=== PATIENT | female | born 1965 | race Caucasian/White ===

== ENCOUNTER 2017-02-18 03:47 | Emergency (ER) | payer OTHER ==
[~2017-02-18] VITALS: Ht 152.4 cm; Wt 82.6 kg
[~2017-02-18 03:47] MED LIST: AMLODIPINE BES2.5 M1 PO; AUGMENTIN 875-1 EACH PO; FAMOTIDINE40 M1 PO; FERROUS SULFAT324 MG PO; FIORICET 325 MG1 TAB PO; FISH OIL 1,0001 EAC1 PO; PAXIL10 M1 PO; VICODIN 5-3001 EACH PO
--- NOTE | 2017-02-18 04:05 | ED NECK/BACK PAIN COMPLAINT ---
History of Present Illness General Chief Complaint: Low Back Pain/Injury Stated Complaint: BACK PAIN Source: patient Exam Limitations: no limitations Vital Signs & Intake/Output Vital Signs & Intake/Output Vital Signs Date Time Temp Pulse Resp B/P B/P Pulse O2 O2 Flow FiO2 Mean Ox Delivery Rate 02/18 0905 98.2 82 18 127/61 95 Room Air 02/18 0654 96.5 81 18 133/75 96 Room Air 02/18 0410 Room Air 02/18 0358 96.6 78 18 179/86 97 Room Air Allergies Coded Allergies: metronidazole (From FLAGYL) (HIVES AND ITCHING 02/18/17) Triage Nurses Notes Reviewed? yes Onset: Abrupt Duration: day(s): (3) Timing: recent history Quality/Severity: mild, moderate Location: lumbar spine Radiation: CHEST Associated Symptoms: shortness of breath HPI: 51 year old female with h/o HTN presents to the ER for chief complaint of upper back pain for the past 3 days. This morning 1 hour prior to arrival the pain radiated to her chest and she felt short of breath. Patient denies any trauma. She states that she does feel short of breath. No control use. No family history of clotting disorders. (JACOBO ROBERSON,SONNY) Reconcile Medications Amlodipine Besylate 2.5 MG TABLET 2 TAB PO DAILY BP (Reported) Cyclobenzaprine HCl 10 MG TABLET 1 TAB PO Q8P PAIN OR SPASM Famotidine 40 MG TABLET 1 TAB PO BID GI (Reported) Ferrous Sulfate 324 MG (65 MG IRON) TABLET.DR 1 TAB PO TID SUPPLEMENT ( Reported) Ibuprofen 600 MG TABLET 1 TAB PO TID PRN PAIN with food [place]-3 Fatty Acids/Fish Oil (Fish Oil 1,000 MG Softgel) (Unknown Strength) CAPSULE (Unknown Dose) PO BID SUPPLEMENT (Reported) Paroxetine HCl (Paxil) 10 MG TABLET 2 TAB PO DAILY MENTAL HEALTH (Reported) (FALLON ROBERSON,BHARATH Mckeon) Past History Travel History Traveled to [place] past 21 day No Medical History Any Pertinent Medical History? see below for history Neurological: NONE EENT: NONE Cardiovascular: hypertension Respiratory: NONE Gastrointestinal: diverticulitis, GERD Hepatic: NONE Renal: NONE Musculoskeletal: NONE Psychiatric: NONE Endocrine: NONE Blood Disorders: NONE Cancer(s): NONE BOILER OPERATOR/Reproductive: NONE Surgical History Surgical History: non-contributory Psychosocial History What is your primary language Bangladeshi Tobacco Use: Never used Family History Comment: DM, HTN, HIGH CHOL MOTHER - BREAST CANCER Hx Contributory? Yes (SONNY CENTENO MD) Review of Systems Review of Systems Constitutional: Denies: chills, fever. Eyes: Reports: no symptoms. Ears, Nose, Throat, Mouth: Reports: no symptoms. Respiratory: Reports: orthopnea. Denies: cough. Cardiovascular: Reports: chest pain. Denies: palpitations. Gastrointestinal/Abdominal: Reports: no symptoms. Musculoskeletal: Reports: back pain. Skin: Reports: no symptoms. Neurological/Psychological: Reports: no symptoms. All Other Systems: Reviewed and Negative (SONNY CENTENO MD) Physical Exam Physical Exam General Appearance: well developed/nourished, mild distress Head: atraumatic Eyes: Bilateral: PERRL, EOMI. Ears, Nose, Throat, Mouth: hearing grossly normal Neck: normal inspection, supple, full range of motion Respiratory: normal breath sounds Cardiovascular: regular rate/rhythm Peripheral Pulses: 2+ radial (R), 2+ radial (L) Gastrointestinal: soft, non-tender Back: normal inspection Extremities: normal range of motion Neurologic/Psych: awake, alert, oriented x 3, normal mood/affect Skin: intact, normal color, warm/dry (SONNY CENTENO MD) Progress Differential Diagnosis: aortic dissection, herniated disc, myofascial strain, AMI, PULMONARY EMBOLISM Plan of Care: Orders Procedure Date/time Status TROPONIN LEVEL 02/18 0857 Complete EKG 02/18 0857 Active TROPONIN LEVEL 02/18 427 Complete PARTIAL THROMBOPLASTIN TIME 02/18 427 Complete PROTHROMBIN TIME 02/18 427 Complete HUMAN BETA HCG SCREEN 02/18 427 Complete D-DIMER 02/18 427 Complete COMPREHENSIVE METABOLIC PANEL 02/18 427 Complete CBC WITHOUT DIFFERENTIAL 02/18 427 Complete EKG 02/18 427 Active Laboratory Tests 02/18/17 0920: Troponin I < 0.01 02/18/17 0450: Anion Gap 9, Estimated GFR > 60, BUN/Creatinine Ratio 23.3, Glucose 140 H, Calcium 8.6, Total Bilirubin 0.4, AST 19, ALT 31, Alkaline Phosphatase 91, Troponin I < 0.01, Total Protein 6.5, Albumin 3.9, Globulin 2.6, Albumin/ Globulin Ratio 1.5, Total Beta HCG NEGATIVE, PT 8.9 L, INR 0.85 L, APTT 29, D- Dimer High Sensitivty 253 H, CBC w Diff NO MAN DIFF REQ, RBC 4.93, MCV 85.1, MCH 28.4, RDW 13.3, MPV 7.8, Gran % 58.5, Lymphocytes % 28.0, Monocytes % 11.1 H, Eosinophils % 2.1, Basophils % 0.3, Absolute Granulocytes 3.5, Absolute Lymphocytes 1.7, Absolute Monocytes 0.7 H, Absolute Eosinophils 0.1, Absolute Basophils 0, PUBS MCHC 33.4 Hand-Off Endorsed To: FALLON ROBERSON,BHARATH Mckeon Endorsed Time: 701 Pending: CT (JACOBO ROBERSON,SONNY) Diagnostic Imaging: Viewed by Me: CT Scan. Discussed w/RAD: CT Scan. Radiology Impression: PATIENT: GINO OROZCO PRESENT AGE: 51 PATIENT ACCOUNT NO: [id number] : 67 LOCATION: [facility] ORDERING PHYSICIAN: SONNY CENTENO MD SERVICE DATE: 02/18/17 EXAM TYPE: CAT - CTA CHEST-PULMONARY EMBOLISM EXAMINATION: CT ANGIOGRAM OF THE CHEST WITH AND WITHOUT CONTRAST (CT PULMONARY ANGIOGRAM FOR PE) CLINICAL INFORMATION: Pleuritic chest pain. COMPARISON: None TECHNIQUE: Prior to contrast administration, noncontrast localization images were obtained. Subsequently, multidetector volumetric imaging was performed from the thoracic inlet to below the diaphragms following the administration of 80 mL Omnipaque 350 intravenous contrast. No contrast reaction reported. Sagittal, coronal, and MIP oblique sagittal reformatted images were obtained on the CT workstation, uploaded to PACS, and reviewed. Total exam dose-length product 489 mGy-cm. FINDINGS: QUALITY OF STUDY/CONTRAST BOLUS: Fair PULMONARY ARTERIES: No central or segmental pulmonary emboli. THORACIC AORTA: No aneurysm or dissection. LUNG: No focal consolidation, nodules or masses. Central airways patent. Minor dependent atelectasis seen at the right lung base. PLEURA: No pleural effusion or pneumothorax. MEDIASTINUM: Normal heart size. No pericardial effusion. No hilar or mediastinal lymphadenopathy. No evidence of septal bowing or right heart strain. CHEST WALL/AXILLA: No axillary or internal mammary lymphadenopathy. OSSEOUS STRUCTURES: Mild endplate osteophytes are seen in the thoracic spine. No acute findings. UPPER ABDOMEN: Unremarkable. No reflux of contrast into the hepatic veins to suggest elevated right heart pressures. IMPRESSION: 1. No evidence of central pulmonary embolism. 2. Minor dependent atelectasis at the right lung base. 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 < Electronically signed in Other Vendor System> SIGNED BY: CHANDRAKANT SAUCEDO MD 02/18/17841 Initial ED EKG: NSR, no ST T wave changes Repeat EKG: unchanged Rhythm Strip: normal sinus rhythm Comments: Patient is feeling better after the Toradol and Flexeril. Lab results and CAT scan results were discussed with the patient. Second set of enzymes are being drawn now. As long as there normal the patient may be safely discharged. (FALLON ROBERSON,BHARATH Mckeon) Departure Departure Condition: Stable Clinical Impression Primary Impression: Upper back pain on left side Referrals: PATIENT HAS NO PRIMARY CARE DR (PCP/Family) Departure Forms: Customer Survey General Discharge Information (JACOBO ROBERSON,SONNY) Departure Disposition: HOME OR SELF CARE Additional Instructions: USE MOIST HEAT TAKE FLEXERIL NEEDED FOR THE PAIN RETURN FOR ANY CONCERNS Prescriptions: Current Visit Scripts Cyclobenzaprine HCl 1 TAB PO Q8P #20 TAB Ibuprofen 1 TAB PO TID PRN PAIN #30 TAB with food (FALLON ROBERSON,BHARATH Mckeon)
[2017-02-18 05:24] LABS: ABSOLUTE BASOPHIL COUNT 0 /CUMM (0.0-0.2); ABSOLUTE EOSINOPHIL COUNT 0.1 /CUMM (0.0-0.7); ABSOLUTE GRANULOCYTE CT 3.5 /CUMM (1.4-6.5); ABSOLUTE LYMPH COUNT 1.7 /CUMM (1.2-3.4); ABSOLUTE MONOCYTE COUNT 0.7 /CUMM (0.10-0.60); BASOPHIL % 0.3 % (0.0-2.0); EOSINOPHIL % 2.1 % (0-5); GRANULOCYTE % 58.5 % (42.2-75.2); MEAN CORPUSCULAR HGB 28.4 PG (27.0-31.0); MEAN CORPUSCULAR HGB CONC 33.4 G/DL (33.0-37.0); MEAN CORPUSCULAR VOLUME 85.1 FL (81.0-99.0); MEAN PLATELET VOLUME 7.8 FL (7.4-10.4); PLATELET COUNT 289 /CUMM (130-400); RBC DISTRIBUTION WIDTH 13.3 % (11.5-14.5); RED BLOOD CELL CT 4.93 /CUMM (4.20-5.40)
[2017-02-18 05:28] LABS: PT 8.9 SEC (9.4-12.5); PTT 29 SEC (25-37)
--- NOTE | 2017-02-18 08:42 | CT SCAN REPORT ---
EXAMINATION: CT ANGIOGRAM OF THE CHEST WITH AND WITHOUT CONTRAST (CT PULMONARY ANGIOGRAM FOR PE) CLINICAL INFORMATION: Pleuritic chest pain. COMPARISON: None TECHNIQUE: Prior to contrast administration, noncontrast localization images were obtained. Subsequently, multidetector volumetric imaging was performed from the thoracic inlet to below the diaphragms following the administration of 80 mL Omnipaque 350 intravenous contrast. No contrast reaction reported. Sagittal, coronal, and MIP oblique sagittal reformatted images were obtained on the CT workstation, uploaded to PACS, and reviewed. Total exam dose-length product 489 mGy-cm. FINDINGS: QUALITY OF STUDY/CONTRAST BOLUS: Fair PULMONARY ARTERIES: No central or segmental pulmonary emboli. THORACIC AORTA: No aneurysm or dissection. LUNG: No focal consolidation, nodules or masses. Central airways patent. Minor dependent atelectasis seen at the right lung base. PLEURA: No pleural effusion or pneumothorax. MEDIASTINUM: Normal heart size. No pericardial effusion. No hilar or mediastinal lymphadenopathy. No evidence of septal bowing or right heart strain. CHEST WALL/AXILLA: No axillary or internal mammary lymphadenopathy. OSSEOUS STRUCTURES: Mild endplate osteophytes are seen in the thoracic spine. No acute findings. UPPER ABDOMEN: Unremarkable. No reflux of contrast into the hepatic veins to suggest elevated right heart pressures. IMPRESSION: 1. No evidence of central pulmonary embolism. 2. Minor dependent atelectasis at the right lung base. VTE: negative
[2017-02-18] MEDS ORDERED: IBUPROFEN600 M1 PO (09:00)
[2017-02-18] MEDS ORDERED: CYCLOBENZAPRINE10 M1 PO (09:00)
[2017-02-18 09:05] VITALS: BP 127/61
== END 2017-02-18 10:29 ==
LOC: ERH 03:47
PROVIDERS: Emergency Medicine
DX: M54.9 Dorsalgia, unspecified (principal)
CPT/HCPCS: 93005; 93010; 96374; J1885